=== PATIENT | female | born 1955 | race African-American/Black ===

== ENCOUNTER 2023-03-22 11:33 | Emergency (ER) | payer MEDICARE, OTHER ==
[~2023-03-22] VITALS: Ht 160 cm; Wt 100.0 kg
[~2023-03-22 11:33] MED LIST: ASPIRIN PO; BP MED; CHOLESTEROL MED; VITAMINS
[2023-03-22 11:42] VITALS: TEMP 98.2
[2023-03-22 13:02] LABS: BASOPHILS % (AUTO) 0.7 % (0.0-2.0); EOSINOPHILS % (AUTO) 0.7 % (1.0-6.0); HEMATOCRIT 44.2 % (36-46); HEMOGLOBIN 14.5 g/dL (12.0-16.0); LYMPHOCYTES # (AUTO) 1.9 K/uL (1.0-4.8); MEAN CORPUSCULAR HEMOGLOBIN 29.7 pg (26.0-34.0); MEAN CORPUSCULAR HGB CONC 32.9 G/dL (31.0-37.0); MEAN CORPUSCULAR VOLUME 91 fL (80-100); MONOCYTES # (AUTO) 0.4 K/uL (0.1-1.0); NEUTROPHILS # (AUTO) 2.3 K/uL (1.8-7.7); NEUTROPHILS % (AUTO) 49.6 % (40.0-70.0); PLATELET COUNT (AUTO) 314 K/uL (150-450); RED BLOOD CELL COUNT(AUTO) 4.88 MIL/uL (4.00-5.20); RED CELL DISTRIBUTION WIDTH 15.4 % (11.5-14.5); WHITE BLOOD COUNT (AUTO) 4.6 K/uL (4.5-11.0)
[2023-03-22 13:18] LABS: B-TYPE NATRIURETIC PEPTIDE 10 pg/mL (0-100)
[2023-03-22 13:28] LABS: ALANINE AMINOTRANSFERASE 18 U/L (12-78); ALBUMIN 3.8 g/dL (3.4-5.0); ALKALINE PHOSPHATASE 72 U/L (46-116); ANION GAP 5 mmol/L (8-16); ASPARTATE AMINOTRANSFERASE 18 U/L (15-37); BILIRUBIN,TOTAL 0.7 mg/dL (0.1-1.0); CALCIUM, TOTAL 9.7 mg/dL (8.8-10.5); CARBON DIOXIDE 33 mmol/L (22-29); CHLORIDE 100 mmol/L (98-107); CREATININE 0.58 mg/dL (0.60-1.30); GLOMERULAR FILTR. RATE CALC > 60 mL/min (>60); GLUCOSE,RANDOM 126 mg/dL (70-110); LIPASE 27 U/L (16-77); SODIUM SERUM 138 mmol/L (136-145); TOTAL PROTEIN, SERUM 8.1 g/dL (6.4-8.2); UREA NITROGEN, BLOOD 12 mg/dL (7-18)
[2023-03-22 13:30] LABS: TROPONIN I-HIGH SENSITIVITY 10 ng/L (<51)
[2023-03-22 13:31] LABS: POTASSIUM 2.9 mmol/L (3.5-5.1)
[2023-03-22] MEDS: ACETAMINOPHEN 500 MG TABLET PO ONE (14:06)
[2023-03-22] MEDS: POTASSIUM CHLORIDE 10% 40 MEQ/30 ML LIQUID UDCUP PO ONE ×2 (14:06→14:22)
[2023-03-22 14:11] VITALS: BP 127/62; PULSE 68; RESP 18
[2023-03-22 14:30] LABS: APPEARANCE,URINE CLEAR (CLEAR); BILIRUBIN,URINE NEGATIVE (NEGATIVE); COLOR,URINE YELLOW (YELLOW); GLUCOSE, URINE (UA) NEGATIVE (NEGATIVE); KETONES,URINE NEGATIVE (NEGATIVE); LEUKOCYTE ESTERASE ,URINE SMALL (NEGATIVE); NITRATE,URINE NEGATIVE (NEGATIVE); OCCULT BLOOD,URINE NEGATIVE (NEGATIVE); PH,URINE 5.5 (5.0-8.0); PROTEIN,URINE TRACE mg/dL (NEGATIVE); SPECIFIC GRAVITIY, URINE 1.028 (1.003-1.030); UROBILINOGEN,URINE <=1.0 mg/dL (<=1.0)
[2023-03-22] MEDS ORDERED: ACET-66 PO (14:41)
[2023-03-22] MEDS ORDERED: POTA8CAP20 PO (14:41)
[2023-03-22 14:47] LABS: BACTERIA,URINE None Seen /HPF (None Seen); RBC,URINE None Seen /HPF (0-2); SQUAMOUS EPITHELIAL CELL,UR Few /LPF (None Seen); WBC,URINE 0-2 /HPF (0-5)
[2023-03-25] MEDS ORDERED: ACET-66 PO (16:31)
[2023-03-25] MEDS ORDERED: POTA8CAP20 PO (16:31)
== END 2023-03-22 15:14 | disposition home or self-care (01) ==
LOC: EMS 11:33
DX: S46.912A Strain of unspecified muscle, fascia and tendon at shoulder and upper arm level, left arm, initial encounter (principal); I10 Essential (primary) hypertension; E87.6 Hypokalemia; Z87.891 Personal history of nicotine dependence; X58.XXXA Exposure to other specified factors, initial encounter; Y93.B9 Activity, other involving muscle strengthening exercises; Y92.89 Other specified places as the place of occurrence of the external cause; Y99.8 Other external cause status
CPT/HCPCS: 71045; 80053; 81001; 83690; 83880; 84484; 85025; 93005; 99285; 36415-L1; 36415-TC

== ENCOUNTER 2023-06-17 11:19 | Emergency (ER) | payer MEDICARE, OTHER ==
[~2023-06-17] VITALS: Ht 165.1 cm; Wt 86.4 kg
[~2023-06-17 11:19] MED LIST changes: +ACET-66 PO; +POTA8CAP20 PO
[2023-06-17 11:21] VITALS: TEMP 98.2
[2023-06-17] MEDS ORDERED: CEPH-558 PO (12:56)
[2023-06-17] MEDS ORDERED: BACITRACIN 0.9 GM PACKET OINTMENT TP ONE (13:00)
[2023-06-17] MEDS ORDERED: CEPHALEXIN MONOHYDRATE 500 MG CAPSULE PO ONE (13:00)
[2023-06-17 13:10] VITALS: BP 133/85; PULSE 77; RESP 16
== END 2023-06-17 14:21 | disposition home or self-care (01) ==
LOC: EMS 14:18
DX: L03.011 Cellulitis of right finger (principal); I10 Essential (primary) hypertension; Z87.891 Personal history of nicotine dependence
CPT/HCPCS: 10060; 99283

== ENCOUNTER 2025-03-18 13:34 | Emergency (ER) | payer MEDICARE, OTHER ==
[~2025-03-18] VITALS: Ht 165.1 cm; Wt 85.5 kg
[~2025-03-18 13:34] MED LIST changes: +CEPH-558 PO
[2025-03-18] MEDS ORDERED: AMLO2.5T96 PO (13:37)
[2025-03-18] MEDS ORDERED: LISI-892 PO (13:37)
[2025-03-18] MEDS ORDERED: CHOL500043 PO (13:37)
[2025-03-18 13:39] VITALS: BP 134/89; PULSE 64; RESP 18; TEMP 98.6; O2SAT 98
[2025-03-18] MEDS: LIDOCAINE 5% TRANSDERMAL PATCH TD ONE (13:59)
[2025-03-18] MEDS: ACETAMINOPHEN 500 MG TABLET PO ONE (14:05)
[2025-03-18] MEDS: IBUPROFEN 600 MG TABLET PO ONE (14:05)
[2025-03-18] MEDS ORDERED: IBUP-1492 PO (14:08)
[2025-03-18] MEDS ORDERED: LIDO-57 TP (14:08)
[2025-03-18] MEDS ORDERED: ACET-3385 PO (14:08)
== END 2025-03-18 14:15 | disposition home or self-care (01) ==
LOC: EMS 13:34
DX: S46.911A Strain of unspecified muscle, fascia and tendon at shoulder and upper arm level, right arm, initial encounter (principal); I10 Essential (primary) hypertension; Z87.891 Personal history of nicotine dependence; Z79.899 Other long term (current) drug therapy; X58.XXXA Exposure to other specified factors, initial encounter; Y93.E9 Activity, other interior property and clothing maintenance; Y92.89 Other specified places as the place of occurrence of the external cause; Y99.8 Other external cause status
CPT/HCPCS: 99284; 73030-TC; Z7502; Z7610